=== PATIENT | male | born 1955 | race Caucasian/White ===

== ENCOUNTER 2022-01-17 14:37 | Emergency (ER) | payer OTHER ==
--- NOTE | 2022-01-17 15:01 | ED Physician Documentation ---
History of Present Illness - Stated complaint Stated Complaint: DIZZY - Chief complaint Chief Complaint: Neuro - Additonal information Additional information: 66-year-old male presents emergency department for evaluation of intermittent sensation of feeling lightheaded and dizzy. Symptoms began about 1 month ago. He has not had any syncopal episodes. Denies any dyspnea or chest pain with these events. He does have a history of an aortic dissection status post graft repair in 2015 through [facility]. He is followed by message and delivery service pricer Dr. Hackett. He is not anticoagulated. He takes metoprolol as well as a statin daily. No previous history of myocardial infarction. Denies any history of stress testing. Non- smoker. Review of Systems Constitutional: denies: Fever, Chills Eyes: reports: Reviewed and negative Ears: reports: Reviewed and negative Throat: reports: Reviewed and negative Cardiac: denies: Chest pain / pressure, Palpitations, Pedal edema, Calf pain Respiratory: reports: Reviewed and negative GI: denies: Abdominal Pain, Nausea, Vomiting : reports: Reviewed and negative Skin: reports: Reviewed and negative Musculoskeletal: reports: Reviewed and negative Neurologic: denies: Generalized weakness, Focal weakness, Numbness PD PAST MEDICAL HISTORY - Present Medications Home Medications: Ambulatory Orders Medication Instructions Recorded Confirmed No Known Home Medications 01/17/22 01/17/22 - Allergies Allergies/Adverse Reactions: Allergies Allergy/AdvReac Type Severity Reaction Status Date / Time No Known Drug Allergies Allergy Verified 01/17/22 14:45 PD ED PE NORMAL - General General: Alert and oriented X 3, No acute distress, Well developed/nourished - HEENT HEENT: Atraumatic, Moist mucous membranes. No: Ears normal (Both ear canals occluded with cerumen) - Neck Neck: Supple, no meningeal sign, No adenopathy - Cardiac Cardiac: RRR, No murmur, Strong equal pulses - Respiratory Respiratory: No respiratory distress, Clear bilaterally - Abdomen Abdomen: Normal bowel sounds, Soft - Back Back: No CVA TTP, No spinal TTP - Derm Derm: Normal color, Warm and dry, No rash - Extremities Extremities: No deformity, No tenderness to palpate, Normal ROM s pain, No calf tenderness / cord - Neuro Neuro: Alert and oriented X 3, clinical product specialist 2-12 intact, No motor deficit, No sensory deficit, Normal speech, Other (Normal gait) Eye Opening: Spontaneous Motor: Obeys Commands Verbal: Oriented GCS Score: 15 Results - Vitals Vitals: Vital Signs - 24 hr 01/17/22 01/17/22 14:40 15:31 Temperature 36.7 C Heart Rate 66 Heart Rate [ 63 Sitting] Heart Rate [ 70 Standing] Heart Rate [ 62 Supine] Respiratory 16 Rate Blood Pressure 155/71 H Blood Pressure 136/78 H [Sitting] Blood Pressure 123/89 H [Standing] Blood Pressure 128/72 [Supine] O2 Saturation 99 Oxygen O2 Source Room air - EKG (time done) 1533 Rate: Rate (enter#) (59) Rhythm: NSR [place]: Normal, Anterior hemiblock QRS: Normal Ischemia: Normal ST segments Compare to prior EKG: Old EKG unavailable Computer interpretation: Agree with computer - Labs Labs: Laboratory Tests 01/17/22 01/17/22 01/17/22 15:07 15:07 15:07 WBC 11.5 H RBC 4.06 L Hgb 13.6 L Hct 40.2 L MCV 99.0 H MCH 33.5 H MCHC 33.8 RDW 13.6 Plt Count 252 MPV 10.3 Neut # (Auto) 7.9 H Lymph # (Auto) 2.2 [place] # (Auto) 0.9 Eos # (Auto) 0.3 Baso # (Auto) 0.1 Absolute Nucleated RBC 0.00 Nucleated RBC % 0.0 Sodium 136 Potassium 4.0 Chloride 104 Carbon Dioxide 25 Anion Gap 7.0 BUN 19 Creatinine 0.8 Estimated GFR (MDRD) 96 Glucose 87 Calcium 9.3 Total Bilirubin 0.6 AST 23 ALT 24 Alkaline Phosphatase 54 Troponin I High Sens 4.0 Total Protein 8.3 H Albumin 4.5 Globulin 3.8 Albumin/Globulin Ratio 1.2 Lipase 23 PD MEDICAL DECISION MAKING - ED course Complexity details: reviewed results, re-evaluated patient, considered diff erential, d/w patient ED course: 66-year-old male presents emergency department for evaluation of feeling intermittently lightheaded and dizzy over the last few weeks. He is denying any chest pain or shortness of air. He does have a history of an aortic dissection status post graft repair in 2015. Followed by cardiology through [facility]. On presentation he appears remarkably well. No focal or cerebellar deficits were noted. He did have bilateral cerumen impaction and we were able to remove about 80 to 90% of the cerumen at the bedside. He reports improved hearing. Here in the emergency department his work-up included a screening EKG which was nonischemic. Screening labs showed no significant anemia or electrolyte derangement. High-sensitivity troponin is negative. His chest x-ray per my read is without acute focal findings. Given age and history he would benefit from outpatient cardiac work-up to possibly include echocardiogram and stress test. Today his orthostatics are negative. He is advised close follow-up with PCP. Emergent return precautions otherwise discussed Departure - Departure Disposition: Home, Self Care Clinical Impression: Light-headed feeling, Dizzy spells, History of aortic dissection Condition: Stable Record reviewed to determine appropriate education?: Yes Comments: Alvin bartlett are seen today in the emergency department for feeling lightheaded and having dizzy spells over the last few weeks. Here in the emergency department your chest x-ray is essentially normal for age though we do see the findings of your previous aneurysmal repair. Your EKG does not show signs that you are having a heart attack. Your screening labs including your blood count, electrolytes and troponins are all essentially normal. Given your age and history you should follow-up with your message and delivery service pricer. You would benefit from outpatient echocardiogram and/or stress testing. If at any point you have fainting episodes, develop chest pain or shortness of air please return to the emergency department. You have also reported feeling dizzy. We did find that you had significant cerumen impaction in both of your ears. This was removed at the bedside today. My hope is that by removing the cerumen some of the dizzy spells begin to improve. If you find that they are not consider close follow-up with your primary care provider. Outpatient MRI imaging may be indicated at that time
[2022-01-17 15:13] LABS: BASOPHILS # (AUTO) 0.1 10^3/uL (0.0-0.1); BASOPHILS % (AUTO) 0.8 %; EOSINOPHILS # (AUTO) 0.3 10^3/uL (0.0-0.7); EOSINOPHILS % (AUTO) 2.3 %; HCT - HEMATOCRIT 40.2 % (42.0-52.0); HGB - HEMOGLOBIN 13.6 g/dL (14.0-18.0); LYMPHOCYTES # (AUTO) 2.2 10^3/uL (1.5-3.5); LYMPHOCYTES % (AUTO) 19.4 %; MEAN CORPUSCULAR HEMOGLOBIN 33.5 pg (27.0-31.0); MEAN CORPUSCULAR HGB CONC 33.8 g/dL (32.0-36.0); MEAN PLATELET VOLUME 10.3 fL (7.4-11.4); MONOCYTES # (AUTO) 0.9 10^3/uL (0.0-1.0); MONOCYTES % (AUTO) 8.2 %; NEUTROPHILS # (AUTO) 7.9 10^3/uL (1.5-6.6); PLT - PLATELET COUNT 252 10^3/uL (130-450); RED BLOOD COUNT 4.06 10^6/uL (4.70-6.10); RED CELL DISTRIBUTION WIDTH 13.6 % (12.0-15.0); WHITE BLOOD COUNT 11.5 x10^3/uL (4.8-10.8)
[2022-01-17 15:29] LABS: ALBUMIN 4.5 g/dL (3.2-5.5); ALBUMIN/GLOBULIN RATIO 1.2 (1.0-2.2); BILIRUBIN,TOTAL 0.6 mg/dL (0.2-1.0); CALCIUM 9.3 mg/dL (8.5-10.3); CREATININE 0.8 mg/dL (0.6-1.2); TOTAL PROTEIN 8.3 g/dL (6.7-8.2)
--- NOTE | 2022-01-17 16:10 | XRAY Report ---
PROCEDURE: Chest 1 View X-Ray INDICATIONS: Chest Pain COMMENTS: c/o dizziness, denies SOA. PRIORS: none TECHNIQUE: One view of the chest was acquired. COMPARISON: None FINDINGS: Surgical changes and devices: Status post median sternotomy Lungs and pleura: No pleural effusions or pneumothorax. Lungs are clear. Mediastinum: Mediastinal contours appear normal. Heart size is normal. Bones and chest wall: No suspicious bony lesions. Overlying soft tissues appear unremarkable. IMPRESSION: No acute cardiopulmonary abnormality Reviewed by: Pablo Quinteros on 01/17/2022 3:09 PM [facility]IVE Approved by: Pablo Quinteros on 01/17/2022 3:09 PM OLIVE Station ID: [id number]
[2022-01-17 16:12] VITALS: BP 132/80
== END 2022-01-17 16:15 | disposition home or self-care (01) ==
LOC: ED 14:37
DX: R42 Dizziness and giddiness (principal); H61.23 Impacted cerumen, bilateral; Z86.79 Personal history of other diseases of the circulatory system
CPT/HCPCS: 36415; 80053; 83690; 84484; 85025; 93005; 99283; 99284

== ENCOUNTER 2023-08-22 07:53 | Outpatient (CLI) | payer OTHER ==
--- NOTE | 2023-08-22 15:48 | Ultrasound Report ---
PROCEDURE: Testicle INDICATIONS: TESTICULAR MASS TECHNIQUE: Real-time scanning was performed of the scrotum and testicles, with image documentation. Color and p ulse Doppler interrogation was performed of both testicles. COMPARISON: None. FINDINGS: Right: Testicle is normal in size at 5.3 x 3.3 x 2.6 cm, and homogenous in echotexture. Prominent r ete testis. Epididymis is normal in overall size and morphology. Right epididymal head cyst measuring 1.1 cm. No hydrocele. No varicoceles. Overlying scrotal skin is normal in thickness. Left: Testicle is normal in size at 5.1 x 3.6 x 2.5 cm, and homogeneous in echotexture. Prominent re te testis. Epididymis is normal in overall size and morphology. Left epididymal head cyst measuring 4.4 x 2.7 x 2 cm. Punctate left epididymal calcifications. No hydrocele. No varicoceles. Overlying s crotal skin is normal in thickness. Doppler: Color and pulse Doppler demonstrate normal and symmetric arterial flow in both testicles. IMPRESSION: 1. No testicular mass. 2. Large left epididymal head cyst measuring 4.4 cm. Small right epididymal head cyst measuring 1.1 c m. 3. No hydrocele or varicocele. 4. No torsion or epididymitis demonstrated. Reviewed by: Feliciano Orellana MD on 08/22/2023 3:46 PM PST Approved by: Feliciano Orellana MD on 08/22/2023 3:46 PM PST Station ID: [id number]
== END 2023-08-22 07:54 | disposition home or self-care (01) ==
LOC: DI 07:53
PROVIDERS: ATTEND Internal Medicine
DX: N50.3 Cyst of epididymis (principal)

== ENCOUNTER 2023-12-14 09:44 | Outpatient (CLI) | payer OTHER ==
[2023-12-14 10:12] LABS: BASOPHILS # (AUTO) 0.1 10^3/uL (0.0-0.1); BASOPHILS % (AUTO) 0.7 %; EOSINOPHILS # (AUTO) 0.2 10^3/uL (0.0-0.7); EOSINOPHILS % (AUTO) 2.1 %; HCT - HEMATOCRIT 41.1 % (42.0-52.0); HGB - HEMOGLOBIN 12.9 g/dL (14.0-18.0); LYMPHOCYTES # (AUTO) 2.1 10^3/uL (1.5-3.5); LYMPHOCYTES % (AUTO) 20.8 %; MEAN CORPUSCULAR HEMOGLOBIN 31.9 pg (27.0-31.0); MEAN CORPUSCULAR HGB CONC 31.4 g/dL (32.0-36.0); MEAN CORPUSCULAR VOLUME 101.5 fL (80.0-94.0); MEAN PLATELET VOLUME 10.3 fL (7.4-11.4); MONOCYTES # (AUTO) 0.8 10^3/uL (0.0-1.0); MONOCYTES % (AUTO) 7.8 %; NEUTROPHILS % (AUTO) 68.4 %; PLT - PLATELET COUNT 254 10^3/uL (130-450); RED BLOOD COUNT 4.05 10^6/uL (4.70-6.10); RED CELL DISTRIBUTION WIDTH 13.7 % (12.0-15.0); WHITE BLOOD COUNT 10.2 x10^3/uL (4.8-10.8)
[2023-12-14 10:36] LABS: ALBUMIN 4.3 g/dL (3.2-5.5); ALBUMIN/GLOBULIN RATIO 1.3 (1.0-2.2); ALKALINE PHOSPHATASE 51 IU/L (42-121); ALT ALANINE AMINOTRANSFERASE 18 IU/L (10-60); AST ASPARTATE AMINOTRANSFERASE 18 IU/L (10-42); BILIRUBIN,TOTAL 0.6 mg/dL (0.2-1.0); BUN - BLOOD UREA NITROGEN 16 mg/dL (6-20); CALCIUM 9.5 mg/dL (8.5-10.3); CARBON DIOXIDE - CO2 28 mmol/L (21-32); CHLORIDE 102 mmol/L (101-111); CHOL/HDL RATIO 2.2 (<5.0); CHOLESTEROL 146 mg/dL; CREATININE 0.9 mg/dL (0.6-1.3); GFR - MDRD 83 (>89); GLUCOSE 90 mg/dL (74-104); HDL CHOLESTEROL 67 mg/dL; LDL CHOLESTEROL,CALCULATED 66 mg/dL; POTASSIUM 4.2 mmol/L (3.5-4.5); SODIUM 135 mmol/L (135-145); TOTAL PROTEIN 7.7 g/dL (6.4-8.9); TRIGLYCERIDES 66 mg/dL (48-352); VLDL CHOLESTEROL 13 mg/dL
[2023-12-14 10:46] LABS: THYROID STIMULATING HORMONE 1.76 uIU/mL (0.34-5.60)
[2023-12-14 11:18] LABS: PSA TOTAL 0.406 ng/mL (0.000-2.000)
== END 2023-12-14 09:45 | disposition home or self-care (01) ==
LOC: LAB 09:44
PROVIDERS: ATTEND Internal Medicine
DX: M79.671 Pain in right foot (principal); R07.9 Chest pain, unspecified; R63.4 Abnormal weight loss; Z79.899 Other long term (current) drug therapy
CPT/HCPCS: 36415; 80053; 80061; 83721; 84153; 84443; 84550; 85025